=== PATIENT | male | born 1950 | race Two or more races ===

== ENCOUNTER 2017-04-19 16:58 | Inpatient (IN) | payer OTHER ==
[~2017-04-19] VITALS: Ht 167.6 cm; Wt 58.6 kg
[2017-04-19 18:38] LABS: Basophils # (auto) 0 uL; Basophils % (auto) 0.3 % (0.0-2.0); Eosinophils # (auto) 0 uL; Hematocrit 32.7 % (41.0-53.0); Hemoglobin 10.5 g/dL (13.5-17.5); Lymphocytes # (auto) 0.7 uL; Lymphocytes % (auto) 4.9 % (10.0-50.0); Mean Corpuscular Hemoglobin 28.1 pg (28.0-32.0); Mean Corpuscular Hgb Conc. 32.3 g/dL (32.0-36.0); Monocytes # (auto) 0.9 uL; Monocytes % (auto) 6.2 % (0.0-12.0); Neutrophils # (auto) 13.5 uL; Neutrophils % (auto) 88.6 % (37.0-80.0); Nucleated Red Blood Cells % 0.2 %; Platelet Count (auto) 234 10^3/uL (140-450); Red Blood Cells 3.76 10^6/uL (4.5-5.90); Red Cell Distribution Width 17.7 % (11.8-14.3); White Blood Cell 15.2 10^3/uL (4.4-10.8)
[2017-04-19 18:55] LABS: BUN/Creatinine Ratio 14.6; Calcium 6.8 mg/dL (8.5-10.1); Magnesium 2.1 mg/dL (1.6-2.6); Potassium 4.7 mmol/L (3.5-5.1)
[2017-04-19 19:04] LABS: Bilirubin, Total 0.4 mg/dL (0.2-1.0); Total Protein 7.4 g/dL (6.4-8.2)
[2017-04-19] MEDS ORDERED: MORPHINE SULFATE 10 MG/ML INJ 1ML SDV IV ONE (19:45)
[2017-04-19] MEDS ORDERED: PANTOPRAZOLE 40 MG/10 ML VIAL IV ONE (20:00)
[2017-04-19] MEDS ORDERED: cefTRIAXone 1GM/10ml IVPUSH 10 ML IV ONE (20:00)
[2017-04-19] MEDS ORDERED: SODIUM CHLORIDE 0.9% 1,000 ML IV ONE (20:00)
[2017-04-19] MEDS ORDERED: ACETAMINOPHEN 325 MG TAB PO PRN (20:00)
[2017-04-19] MEDS ORDERED: HYDROcodone-ACET 5/325MG TAB PO PRN (20:00)
[2017-04-19] MEDS ORDERED: TEMAZEPAM 15 MG CAP PO PRN (20:00)
[2017-04-19] MEDS ORDERED: ONDANSETRON HCL 4 MG/2 ML VIAL IV ONE (20:00)
[2017-04-19] MEDS ORDERED: MORPHINE SULFATE 10 MG/ML INJ 1ML SDV IV PRN ×2 (20:00)
[2017-04-19] MEDS ORDERED: NITROGLYCERIN 0.4 MG SL TAB SL PRN (20:00)
[2017-04-19 20:37] LABS: INR 1.2 (0.9-1.15); Prothrombin Time 13.1 sec (9.37-12.3)
[2017-04-19 20:48] LABS: Hemoglobin 9.5 g/dL (13.5-17.5)
[2017-04-19] MEDS ORDERED: CARISOPRODOL 350 MG TAB ONE (21:15)
[2017-04-19] MEDS: SODIUM CHLORIDE 0.9% 1,000 ML IV SCH (21:58)
[2017-04-19] MEDS ORDERED: FAMOTIDINE 20 MG TAB PO SCH (22:00)
[2017-04-19] MEDS: metroNIDAZOLE 500MG/100ML 100 ML IV SCH (22:06)
[2017-04-19 23:01] VITALS: BP 92/63
[2017-04-19] MEDS: HYDROmorphone HCL 2 MG TAB PO PRN (23:18)
[2017-04-19 23:30] VITALS: BP 92/63
[2017-04-20] MEDS ORDERED: CLO01T (00:16)
[2017-04-20] MEDS ORDERED: ESOM40CA39 (00:16)
[2017-04-20] MEDS ORDERED: IPRIH (00:16)
[2017-04-20] MEDS ORDERED: ALBU1AER4 (00:16)
[2017-04-20] MEDS ORDERED: RANI-229 (00:16)
[2017-04-20] MEDS ORDERED: TAMS0.4C36 (00:16)
[2017-04-20] MEDS ORDERED: LISI40TA (00:16)
[2017-04-20] MEDS ORDERED: PANC3600 (00:16)
[2017-04-20] MEDS ORDERED: GABA800T97 (00:16)
[2017-04-20] MEDS ORDERED: HYDR4TAB2 (00:16)
[2017-04-20] MEDS ORDERED: IPRAAER6 (00:16)
[2017-04-20] MEDS ORDERED: GABA-339 (00:16)
[2017-04-20] MEDS ORDERED: AMLO10TA2 (00:16)
[2017-04-20] MEDS ORDERED: CHLO25TA22 (00:16)
[2017-04-20] MEDS ORDERED: CAR350T (00:16)
[2017-04-20] MEDS ORDERED: TEMA30CA (00:16)
[2017-04-20] MEDS ORDERED: METO-159 (00:16)
[2017-04-20] MEDS ORDERED: MOME200A (00:16)
[2017-04-20] MEDS: CARISOPRODOL 350 MG TAB PO PRN ×3 (02:23→20:34)
[2017-04-20 03:49] LABS: Urine Bacteria NONE SEEN /hpf (None Seen); Urine Blood 2+ /uL (Negative); Urine Specific Gravity 1.015 (1.001-1.035); Urine WBC 4 /hpf (0 - 3)
[2017-04-20 05:00] VITALS: BP 92/54
[2017-04-20] MEDS: metroNIDAZOLE 500MG/100ML 100 ML IV SCH ×3 (05:07→21:52)
[2017-04-20] MEDS: SODIUM CHLORIDE 0.9% 1,000 ML IV SCH ×3 (05:08→20:36)
[2017-04-20] MEDS: HYDROmorphone HCL 2 MG TAB PO PRN ×3 (06:00→17:16)
[2017-04-20 07:21] LABS: Basophils # (auto) 0 uL; Basophils % (auto) 0.1 % (0.0-2.0); Eosinophils # (auto) 0 uL; Hematocrit 26.6 % (41.0-53.0); Hemoglobin 8.7 g/dL (13.5-17.5); Lymphocytes # (auto) 0.8 uL; Lymphocytes % (auto) 8.4 % (10.0-50.0); Mean Corpuscular Hemoglobin 28.8 pg (28.0-32.0); Mean Corpuscular Hgb Conc. 32.8 g/dL (32.0-36.0); Mean Corpuscular Volume 87.8 fL (80.0-100.0); Monocytes # (auto) 0.6 uL; Monocytes % (auto) 6.6 % (0.0-12.0); Neutrophils # (auto) 8.3 uL; Neutrophils % (auto) 84.9 % (37.0-80.0); Platelet Count (auto) 157 10^3/uL (140-450); Red Blood Cells 3.03 10^6/uL (4.5-5.90); Red Cell Distribution Width 17.7 % (11.8-14.3); White Blood Cell 9.8 10^3/uL (4.4-10.8)
[2017-04-20 07:50] LABS: Albumin 2.5 g/dL (3.4-5.0); Bilirubin, Total 0.3 mg/dL (0.2-1.0); Calcium 6.8 mg/dL (8.5-10.1); Potassium 4.1 mmol/L (3.5-5.1); Total Protein 6.1 g/dL (6.4-8.2)
[2017-04-20 07:59] VITALS: BP 100/57
[2017-04-20 08:00] VITALS: BP 100/57
[2017-04-20] MEDS: BOOST PLUS 8 ounce PO SCH ×3 (08:00→18:00)
[2017-04-20] MEDS: cefTRIAXone 1GM/10ml IVPUSH 10 ML IV SCH (09:28)
[2017-04-20] MEDS ORDERED: PANTOPRAZOLE 40 MG/10 ML VIAL IV SCH ×2 (10:00→22:00)
[2017-04-20] MEDS: MULTIPLE VITAMIN TAB PO SCH (10:22)
[2017-04-20] MEDS: ONDANSETRON HCL 4 MG/2 ML VIAL IV PRN ×2 (10:33→17:17)
[2017-04-20 11:38] VITALS: BP 103/63
[2017-04-20] MEDS ORDERED: HYDROmorphone HCL 2 MG/ML VL IV PRN (14:15)
[2017-04-20 16:22] VITALS: BP 113/67
[2017-04-20] MEDS: MORPHINE SULFATE 10 MG/ML INJ 1ML SDV IV PRN (20:49)
[2017-04-20 22:00] VITALS: BP 134/76
[2017-04-21] MEDS: MORPHINE SULFATE 10 MG/ML INJ 1ML SDV IV PRN ×5 (00:58→21:07)
[2017-04-21 05:00] VITALS: BP 152/77
[2017-04-21] MEDS: SODIUM CHLORIDE 0.9% 1,000 ML IV SCH ×3 (05:02→15:43)
[2017-04-21] MEDS: metroNIDAZOLE 500MG/100ML 100 ML IV SCH ×3 (05:41→21:49)
[2017-04-21 06:52] LABS: Basophils # (auto) 0 uL; Eosinophils # (auto) 0 uL; Hemoglobin 7.6 g/dL (13.5-17.5); Lymphocytes # (auto) 0.3 uL; Monocytes # (auto) 0.4 uL
[2017-04-21 06:56] LABS: Basophils % (auto) 0.4 % (0.0-2.0); Eosinophils % (auto) 0.4 % (0.0-7.0); Hematocrit 23.1 % (41.0-53.0); Lymphocytes % (auto) 6.7 % (10.0-50.0); Mean Corpuscular Hemoglobin 29.2 pg (28.0-32.0); Mean Corpuscular Volume 88.6 fL (80.0-100.0); Monocytes % (auto) 7.7 % (0.0-12.0); Neutrophils # (auto) 4.1 uL; Neutrophils % (auto) 84.8 % (37.0-80.0); Red Blood Cells 2.61 10^6/uL (4.5-5.90)
[2017-04-21 06:59] LABS: Platelet Count (auto) 140 10^3/uL (140-450); White Blood Cell 5.1 10^3/uL (4.4-10.8)
[2017-04-21 07:08] LABS: Calcium 7.3 mg/dL (8.5-10.1); Potassium 3.4 mmol/L (3.5-5.1)
[2017-04-21] MEDS: BOOST PLUS 8 ounce PO SCH ×4 (08:00→18:00)
[2017-04-21 08:02] VITALS: BP 135/79
[2017-04-21] MEDS ORDERED: SODIUM CHLORIDE LOCK 10 ML ONE (08:29)
[2017-04-21] MEDS ORDERED: LIDOCAINE VISCOUS 2% 15ML UD ONE (08:29)
[2017-04-21] MEDS ORDERED: diphenhdrAMINE HCL 50 MG/1 ML VL ONE (08:29)
[2017-04-21] MEDS: cefTRIAXone 1GM/10ml IVPUSH 10 ML IV SCH (09:26)
[2017-04-21] MEDS: MULTIPLE VITAMIN TAB PO SCH (10:00)
[2017-04-21] MEDS: MIDAZOLAM HCL 5 MG/ML-1ML VIAL ONE ×2 (10:01→10:04)
[2017-04-21] MEDS: fentaNYL CITRATE 100 MCG/2 ML VL ONE ×2 (10:01→10:04)
[2017-04-21] MEDS ORDERED: PANTOPRAZOLE 40 MG TAB PO ONE (10:30)
[2017-04-21 11:40] VITALS: BP 135/89
[2017-04-21] MEDS: POTASSIUM CHL 20MEQ/100ML 100 ML IV SCH ×2 (16:01→17:36)
[2017-04-21 16:05] VITALS: BP 113/60
[2017-04-21] MEDS: HYDROmorphone HCL 2 MG TAB PO PRN (18:16)
[2017-04-21] MEDS: ONDANSETRON HCL 4 MG/2 ML VIAL IV PRN (21:12)
[2017-04-21] MEDS: PANTOPRAZOLE 40 MG TAB PO SCH (21:49)
[2017-04-21] MEDS: CARISOPRODOL 350 MG TAB PO PRN (21:50)
[2017-04-21 22:00] VITALS: BP 133/78
[2017-04-21 22:29] LABS: Protein, Urine 79.4 mg/dL (0.0-11.9)
[2017-04-22] MEDS: HYDROmorphone HCL 2 MG TAB PO PRN ×2 (00:18→06:19)
[2017-04-22] MEDS: SODIUM CHLORIDE 0.9% 1,000 ML IV SCH ×2 (01:04→11:37)
[2017-04-22] MEDS: ONDANSETRON HCL 4 MG/2 ML VIAL IV PRN ×3 (02:49→13:32)
[2017-04-22 05:00] VITALS: BP 142/78
[2017-04-22] MEDS: metroNIDAZOLE 500MG/100ML 100 ML IV SCH ×2 (05:53→13:33)
[2017-04-22] MEDS: CARISOPRODOL 350 MG TAB PO PRN ×2 (05:53→14:44)
[2017-04-22 06:39] LABS: BUN/Creatinine Ratio 20.9; Calcium 7.2 mg/dL (8.5-10.1); Potassium 3.9 mmol/L (3.5-5.1)
[2017-04-22] MEDS: BOOST PLUS 8 ounce PO SCH ×2 (07:53→12:12)
[2017-04-22 08:47] VITALS: BP 124/69
[2017-04-22] MEDS: cefTRIAXone 1GM/10ml IVPUSH 10 ML IV SCH (09:13)
[2017-04-22] MEDS: MULTIPLE VITAMIN TAB PO SCH (09:44)
[2017-04-22] MEDS: PANTOPRAZOLE 40 MG TAB PO SCH (09:44)
[2017-04-22] MEDS ORDERED: HYDROmorphone HCL 2 MG/ML VL IV PRN (11:45)
[2017-04-22] MEDS ORDERED: MORPHINE SULF INJ 2 MG/ML SYRINGE 1ML IV PRN (11:45)
[2017-04-22 12:19] LABS: Hematocrit 25.5 % (41.0-53.0); Hemoglobin 8.1 g/dL (13.5-17.5)
[2017-04-22 13:10] VITALS: BP 138/72
== END 2017-04-22 16:30 | disposition home or self-care (01) | DRG 369 ==
LOC: ER 16:58 → EDBD 16:58 → OVERFLOW 16:59 → TELE-WESTW 22:58
PROVIDERS: ADMIT Internal Medicine; ATTEND Nurse Practitioner Acute Care
PROC: 0DB68ZX Excision of Stomach, Via Natural or Artificial Opening Endoscopic, Diagnostic (ICD-10-PCS; 2017-04-21)
PROC: 0DB58ZX Excision of Esophagus, Via Natural or Artificial Opening Endoscopic, Diagnostic (ICD-10-PCS; principal; 2017-04-21 09:58)
DX: I85.01 Esophageal varices with bleeding (principal); N17.9 Acute kidney failure, unspecified; E44.0 Moderate protein-calorie malnutrition; E83.51 Hypocalcemia; E87.1 Hypo-osmolality and hyponatremia; E87.8 Other disorders of electrolyte and fluid balance, not elsewhere classified; C44.89 Other specified malignant neoplasm of overlapping sites of skin; D63.8 Anemia in other chronic diseases classified elsewhere; D62 Acute posthemorrhagic anemia; N18.5 Chronic kidney disease, stage 5; K29.61 Other gastritis with bleeding; K20.9 Esophagitis, unspecified; W18.39XA Other fall on same level, initial encounter; E86.0 Dehydration; E87.6 Hypokalemia; F17.210 Nicotine dependence, cigarettes, uncomplicated; I13.10 Hypertensive heart and chronic kidney disease without heart failure, with stage 1 through stage 4 chronic kidney disease, or unspecified chronic kidney disease; S09.90XA Unspecified injury of head, initial encounter; J44.9 Chronic obstructive pulmonary disease, unspecified; K44.9 Diaphragmatic hernia without obstruction or gangrene; K57.30 Diverticulosis of large intestine without perforation or abscess without bleeding; Z85.07 Personal history of malignant neoplasm of pancreas; Z88.6 Allergy status to analgesic agent; Y93.89 Activity, other specified; Y92.89 Other specified places as the place of occurrence of the external cause; Y99.8 Other external cause status; Z68.20 Body mass index [BMI] 20.0-20.9, adult
CPT/HCPCS: 36415; 43239; 70450; 70486; 71045; 74176; 80048; 80053; 81001; 82570; 83735; 84156; 84484; 85014; 85018; 85025; 85610; 86850; 86900; 86901; 87086; 93005; 96361; 96374; 96375; 97163; C9113; J2250; J2405; J3480; J3490